=== PATIENT | male | born 1945 | race Caucasian/White ===

== ENCOUNTER → 2016-12-20 | Outpatient (CLI) | payer MEDICARE, BC ==
[~2016-12-20] VITALS: Ht 168.9 cm; Wt 111.0 kg
[~2016-12-20] MED LIST: AMIO200T7 PO; AMLO5TAB2 PO; ASPI325T PO; CLOP75TA33 PO; LEVO50TA11 PO; METO50TA5 PO; PRAV20TA4 PO; TERA5CAP4 PO
== END ==
LOC: RC 13:51
PROVIDERS: ATTEND Internal Medicine Cardiovascular Disease
DX: J98.8 Other specified respiratory disorders (principal); I48.0 Paroxysmal atrial fibrillation
CPT/HCPCS: 94060; 94726